=== PATIENT | female | born 1960 | race Caucasian/White ===

== ENCOUNTER → 2017-03-29 | Outpatient (CLI) | payer OTHER | END | disposition home or self-care (01) | LOC: LAB 05:10 | PROVIDERS: ATTEND Family Medicine | DX: R53.83 Other fatigue (principal) ==

== ENCOUNTER → 2017-04-10 | Outpatient (CLI) | payer OTHER ==
--- NOTE | 2017-04-10 10:06 | MAM ---
History: Well woman exam. Personal history of breast cancer status post left mastectomy. Date of exam: 04/10/2017 Services provided: Bilateral full field digital screening mammography. CAD, the images were reviewed with R2 computer aided detection. FINDINGS: Glandular tissue is near completely fatty involuted. Comparison with 2012 exam. No dominant mass, architectural distortion or clustered microcalcification. IMPRESSION: Benign exam Recommendation: Routine annual mammography BIRAD CATEGORY: 2 BENIGN Electronically signed by: Kandace Toledo MD 04/10/2017 10:05 AM CDT Workstation: [id number]
== END | disposition home or self-care (01) ==
LOC: MAMMO 08:13
PROVIDERS: ATTEND Family Medicine
DX: Z12.31 Encounter for screening mammogram for malignant neoplasm of breast (principal)

== ENCOUNTER → 2017-04-18 | Outpatient (CLI) | payer OTHER ==
--- NOTE | 2017-04-18 17:24 | RAD ---
EXAM DESCRIPTION: KUB CLINICAL HISTORY: HEMATURIA COMPARISON: None Available. TECHNIQUE: KUB FINDINGS: There is an unremarkable bowel gas pattern. There is no mass or calculus observed. Pedicle screw and interbody fusion is observed at the L4-5 level. IMPRESSION: Unremarkable abdomen. Electronically signed by: Kali Lopez MD 04/18/2017 5:23 PM CDT
== END | disposition home or self-care (01) ==
LOC: RAD 16:52
PROVIDERS: ATTEND Nurse Practitioner Family
DX: R31.9 Hematuria, unspecified (principal)

== ENCOUNTER → 2017-09-27 | Outpatient (CLI) | payer OTHER ==
--- NOTE | 2017-10-01 11:12 | CT ---
EXAM DESCRIPTION: Abdomen/Pelvis w/Contrast CLINICAL HISTORY: ABD PAIN AND SWELLING. FAMILY HX OF COLON CANCER. COMPARISON: None Available TECHNIQUE: CT of the abdomen and Pelvis was performed with IV contrast. This exam was performed according to our departmental dose-optimization program, which includes automated exposure control, adjustment of the mA and/or kV according to patient size and/or use of iterative reconstruction technique. FINDINGS: The lung bases are unremarkable. There is no pneumoperitoneum, ascites or adenopathy. No abdominal aortic aneurysm. No hiatal hernia or gastric wall thickening. There is a 2.4 cm cyst in the dome of the liver. There are 1 or 2 small round low density liver lesions which are too small to actually characterize but probably represent cysts. The spleen, pancreas, adrenals and kidneys are unremarkable for noncontrast technique. No calcified gallstone. No dilated small bowel loops or mesenteric inflammation. There is no bladder wall thickening. The uterus and ovaries are not seen, correlate with surgical history. There is occasional colonic diverticulosis without evidence of diverticulitis. No colonic wall thickening or pericolonic inflammation is identified. The appendix is normal. The terminal ileum and ileocecal junction are unremarkable. Degenerative and postoperative changes are noted in the lumbar spine. Is no acute bone abnormality. IMPRESSION: Colonic diverticulosis, but no diverticulitis, colonic wall thickening or additional abnormality in the abdomen or pelvis to explain patient symptoms. Electronically signed by: Torsten Kruse MD 10/01/2017 11:11 AM SEISMOGRAPH OBSERVER
== END ==
LOC: YCFC.O 16:03
PROVIDERS: ATTEND Nurse Practitioner Family
DX: R10.84 Generalized abdominal pain (principal); Z80.0 Family history of malignant neoplasm of digestive organs

== ENCOUNTER 2017-12-19 06:04 | Day surgery (SDC) | payer OTHER ==
[2017-12-19] MEDS ORDERED: PROPOFOL 200 MG/20 ML VIAL IV ONE (06:05)
[2017-12-19] MEDS ORDERED: LIDOCAINE 1% 10 ML VIAL INJ ONE (06:05)
[2017-12-19] MEDS ORDERED: LACTATED RINGERS 1,000 ML ONE (06:09)
[2017-12-19] MEDS ORDERED: LACTATED RINGERS 1,000 ML IVS ONE ×2 (07:35→08:47)
[2017-12-19] MEDS ORDERED: LACTATED RINGERS 1,000 ML BAG IV ONE (07:35)
--- NOTE | 2017-12-19 09:18 | OP ---
DATE OF PROCEDURE: 12/19/17 PREOPERATIVE DIAGNOSIS: 1. Constipation. 2. Diverticulosis. POSTOPERATIVE DIAGNOSIS: 1. Internal hemorrhoids. 2. Diverticulosis of the descending colon and sigmoid colon. 3. Melanosis coli. PROCEDURE: 1. Colonoscopy. SURGEON: Duncan Iraheta MD. COMPLICATIONS: None apparent. BLOOD LOSS: None. MEDICATIONS: Monitored anesthesia care. DESCRIPTION OF PROCEDURE: Informed consent was obtained prior to sedation. The preprocedure cardiopulmonary assessment was satisfactory. The patient was placed in the left lateral decubitus position and was sedated. A digital rectal exam was unremarkable. There is no significant perianal disease. The tip of the Olympus colonoscope was inserted in the rectum and guided over to the cecum. There was some minimal redundancy of the colon, but it was not really significant and it was fairly easy to advance the scope on over to the cecum. The cecum was identified by locating the ileocecal valve and appendiceal orifice. Prep was good. The mucosa of the cecum, ascending colon, hepatic flexure, transverse colon, splenic flexure, descending colon and sigmoid colon was closely examined. Direct and retroflexed views of the rectum were obtained. ENDOSCOPIC FINDINGS: The patient has diverticulosis of the descending colon and sigmoid colon. The diverticula are not inflamed. The patient has internal hemorrhoids. The patient also has mild changes of melanosis coli throughout the colon. Otherwise, her colonoscopy was unremarkable. RECOMMENDATIONS: The patient will followup with Dr. Bryson in his clinic. She described to me some upper abdominal discomfort, epigastric discomfort, and bloating being her predominant complaints today. If that persists, then I believe we can do an upper endoscopy to investigate her upper GI tract. #[id number] cc: MD Jam King MD [facility] HOSPITALJessica
[2017-12-19 10:21] VITALS: O2SAT 99
[2017-12-19 10:48] VITALS: BP 141/77; TEMP 98.2
== END 2017-12-19 10:00 | disposition home or self-care (01) ==
LOC: AMB 06:04
PROVIDERS: ATTEND Internal Medicine Gastroenterology
DX: K57.30 Diverticulosis of large intestine without perforation or abscess without bleeding (principal); K63.89 Other specified diseases of intestine; K64.8 Other hemorrhoids; K58.1 Irritable bowel syndrome with constipation; F32.9 Major depressive disorder, single episode, unspecified; E78.00 Pure hypercholesterolemia, unspecified; K76.89 Other specified diseases of liver; Z80.0 Family history of malignant neoplasm of digestive organs
CPT/HCPCS: 00813; 45378; J3490; J7120

== ENCOUNTER 2018-03-28 06:44 | Emergency (ER) | payer OTHER ==
[2018-03-28 07:11] VITALS: BP 141/83; TEMP 97.6; O2SAT 97
[2018-03-28] MEDS ORDERED: IBUPROFEN 200 MG TAB PO ONE (07:26)
[2018-03-28] MEDS ORDERED: traMADol 37.5MG/APAP 325MG 1 EA TAB PO ONE (07:27)
--- NOTE | 2018-03-28 07:30 | ED.PDOC ---
History of Present Illness - General Chief Complaint: Upper Extremity Injury Stated Complaint: right shoulder pain Time Seen by Provider: 03/28/18 07:13 Source: patient Exam Limitations: no limitations - History of Present Illness Initial Comments: [PT REPORTS PAIN TO RIGHT SHOULDER AFTER FALLING ON AN OUTSTRETCHED HAND YESTERDAY WHILE RIDING A STICK HORSE IN A RELAY RACE. Occurred: yesterday Pain - Upper Extremity: mild: Elbow, right, Wrist, right, moderate: Shoulder, right Method of Injury: fell Improving Factors: immobilization Worsening Factors: movement Allergies/Adverse Reactions: Allergies NO KNOWN ALLERGY Allergy (Verified 12/19/17 10:51) Home Medications: Ambulatory Orders Anastrozole [Arimidex] 1 mg PO DAILY 03/28/18 Escitalopram Oxalate [Lexapro] 20 mg PO DAILY 03/28/18 Ibuprofen 800 mg PO Q8HR PRN #30 tab 03/28/18 Omeprazole [Prilosec Cap] 40 mg PO ACBK 03/28/18 Tramadol-Acetaminophen [Ultracet] 1 - 2 tab PO Q6HR PRN #30 tab 03/28/18 Review of Systems - Review of Systems Constitutional: Denies: chills, fever Cardiology: Denies: chest pain, palpitations Gastrointestinal/Abdominal: Denies: abdominal pain, vomiting Musculoskeletal: States: see HPI, joint pain. Denies: back pain, joint swelling Skin: Denies: change in color, dryness Past Medical History (General) - Patient Medical History Hx Stroke: No Hx Congestive Heart Failure: No Hx Diabetes: No Hx Gastroesophageal Reflux: Yes Hx Cancer: Yes - Breast Hx MRSA: No Surgical History: Hysterectomy - Vaccination History Hx Influenza Vaccination: Yes Hx Pneumococcal Vaccination: No - Social History Hx Tobacco Use: No Family Medical History - Family History Mother Family History: Unknown Living Status: Unknown Physical Exam - Physical Exam General Appearance: Alert, Comfortable, No apparent distress, Well Developed, Well Groomed, Well Hydrated Eyes, Ears, Nose, Throat Exam: PERRL/EOMI, normal ENT inspection Neck: normal inspection Cardiovascular/Respiratory: no respiratory distress Shoulder Exam: limited ROM, soft tissue tenderness Elbow/Forearm Exam: non-tender, normal ROM, abrasions - TO THE MEDIAL ASPECT OF ELBOW Wrist Exam: non-tender, no evidence of injury, normal ROM Hand Exam: non-tender, no evidence of injury, normal ROM, ecchymosis - TO THE PALMAR SURFACE OF HAND Neuro/Tendon: normal sensation, normal motor functions, normal tendon functions Mental Status: alert, oriented x 3 Skin Exam: normal color, warm/dry Progress - EKG/XRAY/CT XRAY: shoulder- NEG as per rad Departure - Departure Clinical Impression: Sprain and strain of shoulder and upper arm Time of Disposition: 08:17 Disposition: Discharge to Home or Self Care Condition: Good Departure Forms: ED Discharge - Pt. Copy, Patient Portal Self Enrollment Instructions: DI for Shoulder Sprain Diet: resume usual diet Activity: increase activity as tolerated, no lifting, no pushing/pulling with affected limb Referrals: Kimber Vallejo MD [Primary Care Provider] - 1-2 Weeks Walter Borjas MD [Active Staff] - 1-2 Weeks Prescriptions: Tramadol-Acetaminophen [Ultracet] 1 - 2 tab PO Q6HR PRN #30 tab PRN Reason: Pain Ibuprofen 800 mg PO Q8HR PRN #30 tab PRN Reason: Pain Home Medications: Ambulatory Orders Anastrozole [Arimidex] 1 mg PO DAILY 03/28/18 Escitalopram Oxalate [Lexapro] 20 mg PO DAILY 03/28/18 Ibuprofen 800 mg PO Q8HR PRN #30 tab 03/28/18 Omeprazole [Prilosec Cap] 40 mg PO ACBK 03/28/18 Tramadol-Acetaminophen [Ultracet] 1 - 2 tab PO Q6HR PRN #30 tab 03/28/18
--- NOTE | 2018-03-28 08:04 | RAD ---
EXAM DESCRIPTION: Shoulder,Right 2 or More Views CLINICAL HISTORY: 57 years Female, trauma COMPARISON: None. FINDINGS: Two views of the right shoulder show no acute fracture or malalignment. The right AC joint is unremarkable. No soft tissue abnormality. IMPRESSION: Negative exam. Electronically signed by: Torsten Kruse MD 03/28/2018 8:03 AM CDT
== END 2018-03-28 08:41 | disposition home or self-care (01) ==
LOC: ER 06:44
DX: S43.401A Unspecified sprain of right shoulder joint, initial encounter (principal); S46.911A Strain of unspecified muscle, fascia and tendon at shoulder and upper arm level, right arm, initial encounter; K21.9 Gastro-esophageal reflux disease without esophagitis; Z85.3 Personal history of malignant neoplasm of breast; W19.XXXA Unspecified fall, initial encounter

== ENCOUNTER 2018-04-02 19:26 | Emergency (ER) | payer OTHER ==
--- NOTE | 2018-04-02 19:36 | ED.PDOC ---
History of Present Illness - General Chief Complaint: Respiratory Problem Stated Complaint: shortness of breath Time Seen by Provider: 04/02/18 19:31 Source: patient Exam Limitations: no limitations - History of Present Illness Initial Comments: Neyda Mazariegos 57 y/o female employee here at [employer] stated that she fell on her right shoulder 28 March 2018 riding a the wooden stick horse during one of hospitals event at about 0700h initially seen here at ER shoulder x-ray no fracture noted but today has sharp pain on her right upper rib cage and hurts to breath also felt has some bruising on the area. Severity: moderate Improving Factors: rest Worsening Factors: movement Associated Symptoms: other - see hpi Allergies/Adverse Reactions: Allergies NO KNOWN ALLERGY Allergy (Verified 12/19/17 10:51) Home Medications: Ambulatory Orders Anastrozole [Arimidex] 1 mg PO DAILY 03/28/18 Escitalopram Oxalate [Lexapro] 20 mg PO DAILY 03/28/18 Ibuprofen 800 mg PO Q8HR PRN #30 tab 03/28/18 Omeprazole [Prilosec Cap] 40 mg PO ACBK 03/28/18 Tramadol-Acetaminophen [Ultracet] 1 - 2 tab PO Q6HR PRN #30 tab 03/28/18 Review of Systems - Review of Systems Constitutional: States: no symptoms reported EENTM: States: no symptoms reported Respiratory: States: see HPI Cardiology: States: no symptoms reported Musculoskeletal: States: see HPI Neurological: States: no symptoms reported Past Medical History (General) - Patient Medical History Hx Stroke: No Hx Congestive Heart Failure: No Hx Diabetes: No Hx Gastroesophageal Reflux: Yes Hx Cancer: Yes - Breast Hx MRSA: No Surgical History: other - mastectomy ,hysterectomy - Vaccination History Hx Influenza Vaccination: Yes Hx Pneumococcal Vaccination: No - Social History Hx Tobacco Use: No Family Medical History - Family History Mother Family History: Unknown Living Status: Unknown Physical Exam - Physical Exam General Appearance: Alert, Comfortable, No apparent distress Eye Exam: bilateral normal Ears, Nose, Throat: hearing grossly normal, normal ENT inspection Neck: supple Respiratory: lungs clear, normal breath sounds, no respiratory distress, other - tenderness right upper rib cage area anteriorly Cardiovascular/Chest: normal peripheral pulses, regular rate, rhythm, no murmur Peripheral Pulses: radial,right: 2+, radial,left: 2+ Gastrointestinal/Abdominal: normal bowel sounds, non tender, soft Back Exam: normal inspection, no CVA tenderness, no vertebral tenderness Extremity: non-tender, no pedal edema, no calf tenderness Neurologic: alert, oriented x 3 Skin Exam: normal color, warm/dry Progress - Progress Progress: 04/02/18 19:47 Vital Signs - 8 hr 04/02/18 19:38 Temperature 98.4 F Pulse Rate [ 82 left] Respiratory 18 Rate Blood Pressure 123/82 [left] O2 Sat by Pulse 96 Oximetry - EKG/XRAY/CT XRAY: chest - and right rib series-no fracture noted Departure - Departure Clinical Impression: Fall Qualifiers: Encounter type: initial encounter Qualified Code(s): W19.XXXA - Unspecified fall, initial encounter Chest wall contusion Qualifiers: Encounter type: initial encounter Laterality: right Qualified Code(s): S20.211A - Contusion of right front wall of thorax, initial encounter Shoulder pain, right Qualifiers: Chronicity: unspecified Qualified Code(s): M25.511 - Pain in right shoulder Time of Disposition: 20:34 Disposition: Discharge to Home or Self Care Condition: Good Departure Forms: ED Discharge - Pt. Copy, Patient Portal Self Enrollment Referrals: Kimber Vallejo MD [Primary Care Provider] - 1-2 Weeks Home Medications: Ambulatory Orders Anastrozole [Arimidex] 1 mg PO DAILY 03/28/18 Escitalopram Oxalate [Lexapro] 20 mg PO DAILY 03/28/18 Ibuprofen 800 mg PO Q8HR PRN #30 tab 03/28/18 Omeprazole [Prilosec Cap] 40 mg PO ACBK 03/28/18 Tramadol-Acetaminophen [Ultracet] 1 - 2 tab PO Q6HR PRN #30 tab 03/28/18 Additional Instructions: May use ASPERCREME with Lidocaine apply to affected area 3 x a day until better( over the counter)for pain
--- NOTE | 2018-04-02 20:19 | RAD ---
Chest single view on 04/02/2018 CLINICAL INDICATION: Chest pain COMPARISON: None FINDINGS: The lungs are clear. There is slight elevation of the right hemidiaphragm. Cardiac, hilar and mediastinal contours are within normal limits. Pulmonary vascularity is within normal limits. No bony abnormality is noted. IMPRESSION: No active disease. Electronically signed by: James Robledo 04/02/2018 8:18 PM CDT
--- NOTE | 2018-04-02 20:20 | RAD ---
Chest single view and right RIBS three view on 04/02/2018 Clinical indications: Right rib pain COMPARISON: Chest x-ray on the same day FINDINGS: The lungs are clear. There is no pneumothorax or pleural effusion. Cardiac, hilar and mediastinal contours are within normal limits. Fusion hardware is noted in the lower lumbar spine. No acute right rib fracture is noted. IMPRESSION: No active disease and no acute right rib fracture. Electronically signed by: James Robledo 04/02/2018 8:19 PM CDT
[2018-04-02] MEDS ORDERED: KETOROLAC TROMETHAMINE INJ 30 MG/ML VIAL IM ONE (20:28)
[2018-04-02 20:46] VITALS: BP 122/74; TEMP 97.9; O2SAT 97
== END 2018-04-02 20:40 | disposition home or self-care (01) ==
LOC: ER 19:26
DX: S20.211A Contusion of right front wall of thorax, initial encounter (principal); M25.511 Pain in right shoulder; W19.XXXA Unspecified fall, initial encounter; Y92.239 Unspecified place in hospital as the place of occurrence of the external cause
CPT/HCPCS: 71045; 71101; J1885

== ENCOUNTER 2019-10-11 13:13 | Emergency (ER) | payer OTHER ==
[2019-10-11] MEDS ORDERED: SODIUM CHLORIDE 0.9% 1000ML 1,000 ML IVS ONE (13:33)
[2019-10-11] MEDS ORDERED: PANTOPRAZOLE SODIUM IV 40 MG VIAL IV ONE (13:33)
[2019-10-11] MEDS ORDERED: ONDANSETRON INJ 4 MG/2 ML VIAL IV ONE (13:33)
--- NOTE | 2019-10-11 13:35 | ED.PDOC ---
History of Present Illness - General Chief Complaint: Abdominal Pain Stated Complaint: abdominal pain Time Seen by Provider: 10/11/19 13:14 Information Source: patient, RN notes reviewed, Vital Signs reviewed, EMS notes reviewed Exam Limitations: no limitations - History of Present Illness Initial Comments: this is a 59-year-old white female who presents today with complaints of abdominal pain since the beginning of the week. It started about Sunday. She states that she had an episode of emesis and then. She denies any fever. She states that she thought that she had the flu. She did get an immunization this year. She reports poor appetite. She has been able to hold down fluids. The last episode of emesis was on Sunday. She states that her last bowel movement was on . She denies any diarrhea or blood in the stools. Hysterectomy and that's the only abdominal surgery. She has had a colonoscopy approximately 2 years ago that was within normal limits. She is scheduled to have an EGD due to history of reflux. 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 Review of Systems - Review of Systems Constitutional: States: no symptoms reported, malaise, other - denies any sick contacts. Denies: chills, fever EENTM: States: no symptoms reported Respiratory: States: no symptoms reported Cardiology: States: no symptoms reported Gastrointestinal/Abdominal: States: abdominal pain, nausea, vomiting. Denies: diarrhea Genitourinary: States: other - currently being treated for UTI. She is on Macrobid and that was started 2 days ago. Musculoskeletal: States: no symptoms reported Skin: States: no symptoms reported Neurological: States: no symptoms reported Endocrine: States: no symptoms reported Hematologic/Lymphatic: States: no symptoms reported All other Systems: Reviewed and Negative Past Medical History (General) - Patient Medical History Hx Stroke: No Hx Congestive Heart Failure: No Hx Diabetes: No Hx Gastroesophageal Reflux: Yes Hx Cancer: Yes - Breast Hx MRSA: No Surgical History: Hysterectomy, other - Vaccination History Hx Influenza Vaccination: Yes Hx Pneumococcal Vaccination: No - Social History Hx Tobacco Use: No Hx Substance Use: No Family Medical History - Family History Mother Family History: Unknown Living Status: Unknown Physical Exam - Physical Exam General Appearance: Alert, Lethargic, Obese, Other - appears uncomfortable. Eyes, Ears, Nose, Throat Exam: PERRL/EOMI, normal ENT inspection, TMs normal, pharynx normal Neck: non-tender, full range of motion, supple, normal inspection Respiratory: chest non-tender, lungs clear, normal breath sounds, no respiratory distress, no accessory muscle use Cardiovascular/Chest: normal peripheral pulses, regular rate, rhythm, no edema, no gallop, no JVD, no murmur Peripheral Pulses: No deficit Gastrointestinal/Abdominal: normal bowel sounds, soft, tenderness - midepigastric no tenderness in the right upper quadrant or right lower quadrant Rectal Exam: deferred Back Exam: normal inspection, no CVA tenderness Extremity: normal range of motion, non-tender, normal inspection, no pedal edema, no calf tenderness Neurologic: radiation control specialist II-XII nml as tested, no motor/sensory deficits, alert, normal mood/affect, oriented x 3 Skin Exam: other - clammy Lymphatic: no adenopathy Progress - Progress Progress: 10/11/19 13:40 MDM: Peritonitis, peptic ulcer disease, GERD, esophagitis, stridorous, gastroenteritis, influenza, dehydration,. Patient will have laboratory evaluation, start fluid hydration, will treat nausea and also use a PPI. We will get GI or surgery consultation as needed. 10/11/19 14:48 I discussed all findings with the patient. We discussed her CT findings as well. We discussed our treatment plan and answered all questions. - Results/Orders Results/Orders: IMPRESSION: 1. No evidence of an acute intra-abdominal process. 2. Findings suggesting mild mesenteric radiculitis. 3. Diverticulosis. Electronically signed by: Ata Hall MD 10/11/2019 1:59 PM PAINT SPRAY TENDER Laboratory Tests 10/11/19 10/11/19 10/11/19 14:02 14:02 14:02 WBC 3.3 L RBC 4.73 Hgb 13.0 Hct 39.9 MCV 84.4 MCH 27.5 MCHC 32.6 L RDW 15.1 H Plt Count 206 MPV 7.6 Absolute Neuts (auto) 1.70 L Absolute Lymphs (auto) 1.00 Absolute Monos (auto) 0.50 Absolute Eos (auto) 0.00 Absolute Basos (auto) 0.00 Neutrophils % 52.9 Lymphocytes % 30.1 Monocytes % 14.8 H Eosinophils % 1.5 Basophils % 0.7 Sodium 139 Potassium 3.6 Chloride 106 Carbon Dioxide 22 Anion Gap 14.6 BUN 13 Creatinine 0.89 BUN/Creatinine Ratio 14.6 Random Glucose 95 Serum Osmolality 277.5 Lactic Acid 1.3 Calcium 8.9 Total Bilirubin 0.4 AST 34 ALT 36 Alkaline Phosphatase 91 Serum Total Protein 7.1 Albumin 3.9 Globulin 3.2 Albumin/Globulin Ratio 1.2 Positive Flu B, Negative Flu A. Departure - Departure Clinical Impression: Influenza due to influenza virus, type B, Diverticulosis, Mesenteric adenitis, Nausea Acute gastritis Qualifiers: Gastritis type: unspecified gastritis Gastritis bleeding: without bleeding Qualified Code(s): K29.00 - Acute gastritis without bleeding Time of Disposition: 14:54 Disposition: Discharge to Home or Self Care Condition: Good Departure Forms: ED Discharge - Pt. Copy, Patient Portal Self Enrollment Instructions: DI for Abdominal Pain-Adult, Flu, Adult (DC) Referrals: Kimber Vallejo MD [Primary Care Provider] - 1-2 Weeks Prescriptions: Acetaminophen W/ Codeine [Tylenol W/ CODEINE #3] 1 ea PO Q6HRS #20 Promethazine HCl [Promethazine Hydrochlorid] 25 mg PO Q6HR #12 tab Oseltamivir Capsule [Tamiflu] 75 mg PO BID 5 Days #10 capsule Home Medications: Ambulatory Orders Escitalopram Oxalate [Lexapro] 20 mg PO DAILY 03/28/18 Acetaminophen W/ Codeine [Tylenol W/ CODEINE #3] 1 ea PO Q6HRS #20 10/11/19 Nitrofurantoin Monohyd Macro [Nitrofurantoin Monohydrat] 100 mg PO BID 10/11/19 Omeprazole 40 mg PO DAILY 10/11/19 Oseltamivir Capsule [Tamiflu] 75 mg PO BID 5 Days #10 capsule 10/11/19 Pravastatin Sodium 10 mg PO DAILY 10/11/19 Promethazine HCl [Promethazine Hydrochlorid] 25 mg PO Q6HR #12 tab 10/11/19 Additional Instructions: continue with home medications. Would also continue the Prilosec. Start Tamiflu twice a day until complete. Use promethazine as needed for nausea. Use pain medication as needed for nausea. Encourage hydration. Anti-inflammatories may also be used with something such as crackers taken with it. If symptoms worsen or do not resolve within the next 48-72 hours follow-up is recommended. Return to the ER as needed.
[2019-10-11] MEDS ORDERED: fentaNYL CITRATE INJ 50 MCG/ML AMP IV ONE (13:42)
--- NOTE | 2019-10-11 14:01 | CT ---
EXAM: Abdoment/Pelvis w/o Contrast CLINICAL INDICATION: Abdominal pain. COMPARISON: 09/27/2017 TECHNIQUE: The CT scan was done using contiguous axial 2.5 mm noncontrast sections through the abdomen and pelvis. This exam was performed according to our departmental dose-optimization program, which includes automated exposure control, adjustment of the mA and/or kV according to patient size and/or use of iterative reconstruction technique. FINDINGS: The visualized portions of the lung bases are clear. A left-sided breast implant is noted. There is a cyst in the left lobe of the liver measuring 2.1 x 2.3 cm. The liver and gallbladder are otherwise unremarkable. The adrenal glands, spleen, pancreas, and kidneys are unremarkable except for a 1.3 cm cyst in the lower pole of the right kidney. The aorta contains atherosclerotic calcifications without evidence of aneurysm. There are mild stranding densities in the mesenteric fat along the superior mesenteric axis with a few borderline prominent lymph nodes, suggesting mesenteric diverticulitis. The appendix is normal. Surgical changes are noted in the lumbar spine. There is diverticulosis of the colon with no findings to suggest acute diverticulitis. The uterus is surgically absent. No dilated loops of small bowel are identified. There is no free air, free fluid, or abscess. IMPRESSION: 1. No evidence of an acute intra-abdominal process. 2. Findings suggesting mild mesenteric radiculitis. 3. Diverticulosis. Electronically signed by: Ata Hall MD 10/11/2019 1:59 PM CATTLE FEEDER
[2019-10-11 15:10] VITALS: BP 141/77; TEMP 98.5; O2SAT 95
== END 2019-10-11 15:05 | disposition home or self-care (01) ==
LOC: ER 13:13
DX: K29.00 Acute gastritis without bleeding (principal); J10.1 Influenza due to other identified influenza virus with other respiratory manifestations; K57.30 Diverticulosis of large intestine without perforation or abscess without bleeding; I88.0 Nonspecific mesenteric lymphadenitis; K21.9 Gastro-esophageal reflux disease without esophagitis; Z85.3 Personal history of malignant neoplasm of breast
CPT/HCPCS: 36415; 74176; 80053; 83605; 85025; 87040; 87502; J2405; J3010; J7030

== ENCOUNTER → 2020-01-09 | Outpatient (CLI) | payer OTHER | LOC: LAB.O 15:51 | PROVIDERS: ATTEND Internal Medicine Gastroenterology | DX: R93.3 Abnormal findings on diagnostic imaging of other parts of digestive tract (principal); R10.84 Generalized abdominal pain ==

== ENCOUNTER → 2020-02-24 | Outpatient (CLI) | payer OTHER | LOC: LAB.O 16:43 | PROVIDERS: ATTEND Urology | DX: R39.15 Urgency of urination (principal); R10.2 Pelvic and perineal pain ==

== ENCOUNTER → 2020-06-10 | Outpatient (CLI) | payer OTHER | END | disposition home or self-care (01) | LOC: GMAM 16:32 | PROVIDERS: ATTEND Family Medicine | DX: M25.50 Pain in unspecified joint (principal) ==

== ENCOUNTER → 2020-06-22 | Outpatient (CLI) | payer OTHER | LOC: GMAM 14:43 | PROVIDERS: ATTEND Family Medicine | DX: Z51.89 Encounter for other specified aftercare (principal); M25.50 Pain in unspecified joint ==

== ENCOUNTER → 2020-07-02 | Outpatient (CLI) | payer OTHER | LOC: GMAM 10:51 | PROVIDERS: ATTEND Family Medicine | DX: R10.13 Epigastric pain (principal) ==

== ENCOUNTER → 2020-07-23 | Outpatient (CLI) | payer OTHER ==
--- NOTE | 2020-07-23 16:11 | MRI ---
PROVIDED CLINICAL HISTORY/REASON FOR EXAM: LOW BACK PAIN TECHNIQUE: Multiplanar, multisequence MRI examination performed of the lumbar spine without intravenous contrast material. COMPARISON: December 24, 2019 FINDINGS: Five lumbar type vertebra are assumed. The designated L5/S1 disc space is at axial T2 image 2. Alignment: No acute subluxation. Postoperative: L4/L5 posterior construct with interbody fusion. Fracture: None present. Paraspinal Soft Tissues: Unremarkable. Retroperitoneum: Visible structures are unremarkable. Conus Medullaris: Termination at L1 level. Morphology is normal. L1/2: Bilateral facet hypertrophy. No significant stenosis. L2/3: Bilateral facet hypertrophy. No significant stenosis. L3/4: Small symmetric disc bulge. Mild bilateral neural foraminal narrowing. Bilateral facet hypertrophy. No significant stenosis. L4/5: Prior fusion. Posterior ridging osteophytes. No definite stenosis. L5/S1: Mild disc desiccation and loss of posterior disc space height. Small symmetric disc bulge. Suspected mild bilateral neural foraminal narrowing. No significant central canal stenosis. Bilateral facet hypertrophy. IMPRESSION: Postoperative lumbar spine with superimposed acquired degenerative changes as above. Electronically signed by: Dominic Yanes MD 07/23/2020 4:09 PM CDT
== END ==
LOC: MRI 09:59
PROVIDERS: ATTEND Family Medicine
DX: M46.96 Unspecified inflammatory spondylopathy, lumbar region (principal); Z98.890 Other specified postprocedural states; M51.37 Other intervertebral disc degeneration, lumbosacral region

== ENCOUNTER → 2020-11-22 | Outpatient (CLI) | payer OTHER ==
--- NOTE | 2020-11-25 10:05 | US ---
EXAM DESCRIPTION: Liver: ULTRASOUND. CLINICAL HISTORY: ABD PAIN COMPARISON: CT scan abdomen and pelvis December 2019. TECHNIQUE: Transabdominal scannin-dimensional and Doppler modes. FINDINGS: Gallbladder: normal size, shape, echogenicity; no intraluminal stones or sludge. No fluid around the gallbladder. No wall thickening. 2.4 mm. Non-tender with transducer pressure. Common bile duct: caliber 5.7 mm within normal limits. Liver: Heterogeneously increased. echogenicity; contour liver capsule smooth where seen. Cystic structure were circumscribed thin margins left lobe measuring 3.0 x 2.6 cm. No fluid around the liver. Intrahepatic biliary ducts normal caliber. Doppler hepatopedal flow portal vein. 14 mm Long axis right lobe 16.9 cm. Pancreas: normal size and echogenicity. Duct not seen. Right kidney: long axis measures 9 cm. Volume 116 ml. Cortical echogenicity is normal.. Cortical thickness is normal. No echogenic stones; no hydronephrosis. Aorta proximal: 2.3 cm normal caliber. IMPRESSION: 1. Gallbladder and common bile duct are unremarkable. 2. Fatty liver with mild enlargement. Physiologic vascularity and physiologic duct caliber. Splenic capsule and no ascites. Pancreas negative. 3. Right kidney is unremarkable. Normal caliber of the proximal abdominal aorta. Electronically signed by: Rick Muse MD 11/25/2020 10:04 AM [facility]
== END ==
LOC: US 16:10
PROVIDERS: ATTEND Family Medicine
DX: R10.84 Generalized abdominal pain (principal); K76.0 Fatty (change of) liver, not elsewhere classified

== ENCOUNTER → 2020-11-25 | Outpatient (CLI) | payer OTHER | LOC: GMAM 14:57 | PROVIDERS: ATTEND Family Medicine | DX: K76.0 Fatty (change of) liver, not elsewhere classified (principal) ==